=== PATIENT | female | born 1965 ===

== ENCOUNTER 2021-09-15 06:26 | Day surgery (SDC) | payer OTHER ==
[~2021-09-15] VITALS: Ht 157.5 cm; Wt 89.4 kg
[~2021-09-15 06:26] MED LIST: AMITRIPTYLINE H25 MG PO; ANTIVERT25 M2 PO; CLONAZEPAM0.5 MG PO; COZAAR25 MG PO; MOBIC15 MG PO; PENTOXIFYLLINE400 MG PO; ZANAFLEX4 MG PO; ZYRTEC10 M3 PO
== END 2021-09-15 14:45 | disposition home or self-care (01) ==
LOC: CIR.AMB 06:26
PROVIDERS: ATTEND Otolaryngology Otology & Neurotology
DX: H66.91 Otitis media, unspecified, right ear (principal); H72.91 Unspecified perforation of tympanic membrane, right ear; D68.9 Coagulation defect, unspecified; Z88.6 Allergy status to analgesic agent; I10 Essential (primary) hypertension; G47.33 Obstructive sleep apnea (adult) (pediatric); Z99.89 Dependence on other enabling machines and devices; G43.909 Migraine, unspecified, not intractable, without status migrainosus; M79.7 Fibromyalgia; F32.A Depression, unspecified; H93.19 Tinnitus, unspecified ear